=== PATIENT | female | born 1960 | race Caucasian/White ===

== ENCOUNTER → 2019-08-11 13:43 | Outpatient (CLI) | payer OTHER, SELFPAY ==
[2019-08-12 02:55] LABS: COVID19 Sendout Not Detected (Not Detect)
== END ==
PROVIDERS: Visit Provider Physician Assistant
DX: Z01.812 Encounter for preprocedural laboratory examination (principal)
CPT/HCPCS: 87635

== ENCOUNTER 2019-08-14 09:33 | Day surgery (SDC) | payer OTHER, SELFPAY ==
[2019-08-12 08:38] VITALS: BMI 63.7
[2019-08-14 09:47] VITALS: BP 149/98; PULSE 109; RESP 18; TEMP 37.2; O2SAT 97; BMI 63.7
[2019-08-14] MEDS: LACTATED RINGERS 1,000 ML 42 ML IV (10:37)
[2019-08-14] MEDS: CEFAZOLIN 2 GM/100 ML FROZ.PIGGY IV (12:15)
--- NOTE | 2019-08-14 12:19 | P.OP_ITS ---
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 The nature of the procedure including the risks and benefits, alternatives, postoperative course and expected outcome were discussed and all questions answered. Consent was obtained. Operative site confirmed and marked. Surgeon: Anatoly Yuen Click Yes if Unassisted: Yes Anesthesia Type: General Operative Notes Findings: Examination under anesthesia was unremarkable. Arthroscopic evalu ation did reveal a complex tear of the posterior horn of the medial meniscus. This was trimmed to a stable rim with a basket and shaver. The meniscus did appear to be in continuity through the posterior horn. There was a diffuse area of grade 3 chondromalacia over the weight-bearing surface of the medial femoral condyle. There was no loose cartilage and a chondroplasty was performed. There is a small area of grade 3 chondromalacia just under the meniscus on the medial tibial plateau. There was fairly minimal chondromalacia in the patellofemoral and lateral compartments. Lateral meniscus had mild fraying but no significant tears. ACL and PCL were intact. Closure Type: primary Specimen(s): none sent Estimated Blood Loss (mL): 5 Blood products transfused: none Procedure in detail: The patient was taken to the operative suite and given prop hylactic antibiotics. Examination under anesthesia was performed. The leg was then prepped and draped in usual sterile fashion. The leg was exsanguinated with an Esmarch dressing and the tourniquet raised to 300 torr. The portal sites were anesthetized with 1% lidocaine with epinephrine and then established with an 11 blade. Medial and lateral parapatellar working portals were utilized. The scope was placed into the medial portal and into the lateral compartment of the knee. The knee was placed in the figure 4 position. The knee was then allowed to hang down at 90? and the notch evaluated. The knee was then extended and the scope switched to the lateral portal and placed up in the anterior compartment. The patellofemoral joint, medial gutter, lateral gutter and suprapatellar pouch were inspected. A valgus force was then placed across the knee over lateral stress post and the medial compartment was evaluated. See specific findings and procedures above. The arthroscopy was completed and the knee drained. The knee was filled with 30 mL of 0.5% ropivacaine and 4 of morphine. The portal sites were closed with Steri-Strips. A sterile gauze and Alber wrap dressing was applied. The patient tolerated procedure well and was returned to recovery room in good condition. Complications: none Post-operative Condition: stable Disposition: same day surgery Plan for aftercare: Patient will progress weight-bearing and activity as desmond ated. Follow up in 2 weeks.
--- NOTE | 2019-08-14 12:19 | PM.PREOP ---
Pre-operative Note COVID-19 COVID-19 status: Negative Result date/Date tested (Pos, Neg/Pending): 08/12/19 Interval Note History & Physical reviewed/Exam performed by Physician: Yes Changes to H&P: No
--- NOTE | 2019-08-14 12:50 | SUR.OPER ---
Supine on padded OR bed, head on pillow, arms secured on padded arm boards at <90 degrees abduction, legs uncrossed, safety belt at thigh, tape over blanket over lower legs.
[2019-08-14] MEDS: LIDOCAINE 1% W/EPI 20 ML INJ (13:01)
[2019-08-14] MEDS: ROPIVACAINE 0.5% PF 5 MG/ML 20ML VIAL 10 ML INJ (13:03)
[2019-08-14 13:06] VITALS: BP 106/62; PULSE 98; RESP 18; TEMP 36.8; O2SAT 93
[2019-08-14 13:10] VITALS: BP 103/66; PULSE 98; RESP 16; O2SAT 94
[2019-08-14] MEDS: ONDANSETRON 4 MG/2 ML INJ IV (13:18)
[2019-08-14] MEDS: ACETAMINOPHEN 325 MG TABLET 650 MG PO (13:18)
[2019-08-14] MEDS: HYDROCODONE/ACET 5/325 TABLET 1 TAB PO (13:19)
[2019-08-14 13:21] VITALS: BP 139/66; PULSE 100; RESP 16; O2SAT 96
[2019-08-14 13:26] VITALS: BP 130/75; PULSE 93; RESP 15
[2019-08-14 13:31] VITALS: BP 141/84; PULSE 95; RESP 18; TEMP 36.7; O2SAT 95
== END 2019-08-14 13:59 | disposition home or self-care (01) ==
PROVIDERS: Referring Provider Orthopaedic Surgery; Visit Provider Orthopaedic Surgery
PROC: (CPT 29870; principal; 2019-08-14 11:45)
DX: S83.241A Other tear of medial meniscus, current injury, right knee, initial encounter (principal); M94.261 Chondromalacia, right knee; M17.11 Unilateral primary osteoarthritis, right knee; W01.0XXA Fall on same level from slipping, tripping and stumbling without subsequent striking against object, initial encounter
CPT/HCPCS: 29881; J0690; J1885; J2405; J2704; J3010